=== PATIENT | female | born 1995 | race Caucasian/White ===

== ENCOUNTER 2024-07-08 21:01 | Emergency (ER) | payer OTHER, SELFPAY ==
[2024-07-08] VITALS (9 sets, daily range): BP systolic 98–119; BP diastolic 57–89; PULSE 82–101; RESP 15–23; TEMP 36.6–36.8; O2SAT 97–100; BMI 20.9
--- NOTE | 2024-07-08 22:17 | EKG12_ITS ---
Test Reason : DYSRHYTHMIA Blood Pressure : / mmHG Vent. Rate : 079 BPM Atrial Rate : 079 BPM P-R Int : 122 ms QRS Dur : 096 ms QT Int : 378 ms P-R-T Axes : 058 078 043 degrees QTc Int : 433 ms Normal sinus rhythm Normal ECG Confirmed by Rupesh Agustin ([id number]), communications editor WILEY ARIAS ([id number]) on 07/11/2024 11:22:56 AM Referred By: ANGELIA Confirmed By:Rupesh Agustin
[2024-07-08 22:33] LABS: Absolute Lymphocyte Count 2.56 X10^3/uL (0.83-4.51); Absolute Neutrophil Count 3.4 X10^3/uL (2.0-7.7); Basophil# 0.05 X10^3/uL; Basophil% 0.8 % (0-1); Eosinophil# 0.12 X10^3/uL; Eosinophils% 1.8 % (0-5); Hematocrit 36.4 % (37-47); Lymphocyte # 2.56 X10^3/ul (0.83-4.51); Lymphocyte % 38.6 % (19-41); Mean Corpuscular Hgb 30.3 pg (27.0-32.0); Mean Corpuscular Volume 91.9 fL (81-99); Mean Platelet Vol. 10.1 fl (6.2-12.0); Monocyte# 0.49 X10^3/uL; Monocyte% 7.4 % (0-10); NRBC Flagged by Analyzer 0 % (0-5); Neutrophil # 3.39 X10^3/uL (2.7-7.7); Neutrophil % 50.9 % (47-70); Platelet Count 191 K/mm3 (150-450); RBC Distribution Width CV 11.9 % (11.6-14.6); RBC Distribution Width SD 40.4 fl (35.1-43.9); Red Blood Count 3.96 M/mm3 (4.2-5.4); White Blood Count 6.6 K/mm3 (4.4-11.0)
--- NOTE | 2024-07-08 22:34 | RAD_ITS ---
EXAM: XR CHEST, 2 VIEWS CLINICAL INDICATION: sob TECHNIQUE: Frontal and lateral views of the chest. COMPARISON: No relevant prior studies available. FINDINGS: LUNGS AND PLEURAL SPACES: Unremarkable. No consolidation or edema. No pneumothorax. No effusion. HEART: Unremarkable. Cardiac silhouette not enlarged. MEDIASTINUM: Central airways and mediastinal contour are unremarkable. BONES/JOINTS: Unremarkable. No acute fracture. SOFT TISSUES: Unremarkable. RAD/Chest PA and Lateral IMPRESSION: No radiographic evidence of acute cardiopulmonary disease. Electronically Signed: Oleg Velazquez MD at 23:06 EDT ,
[2024-07-08 22:49] LABS: Anion Gap 5 (5-15); BUN 13 mg/dL (7-18); BUN/Creat Ratio 21.7 RATIO (10-20); Calcium,Total 8.7 mg/dL (8.5-10.1); Chloride 108 mmol/L (98-107); EST Glomerular Filtration Rate 128 mL/min (>60); Est Glom Filt Rate - Afr Amer 155 mL/min (>60); Estimated Creatinine Clearance 121.62 ml/min; Glucose 133 mg/dL (74-106); Potassium 3.2 mmol/L (3.5-5.1); Sodium Level 141 mmol/L (136-145); Troponin-I HS < 3 pg/mL (3.0-54.0)
[2024-07-08 22:51] LABS: BNP,B-Type NATRIURETIC PEPTIDE 15.8 pg/mL (0-100)
[2024-07-08 22:55] LABS: D-Dimer Quantitative (DVT/PE) < 0.27 FEU/ug/m (0.27-0.49)
--- NOTE | 2024-07-08 23:09 | ED.VIS.DYS ---
HPI History of Present Illness Chief Complaint: Shortness of Breath Informant: patient and spouse/S.O. Narrative Narrative: 29-year-old female has had dyspnea on exertion for the last 2 or 3 months or more, seems like it is progressively worsening. She gets dyspneic with chest tightness with activities, now it does not take very much exertion or activity for her to be symptomatic. She has had no presyncope or syncope. No fevers, chills, cough, orthopnea, leg swelling. No diaphoresis, no GI symptoms no other symptoms. Since she presents to the ER for this and has been several months, I asked them if they have had other healthcare encounters and testing for this, they state yes there was a CT scan with contrast done at [place], there apparently was a nodule, but they are not sure what else is known about it. They did see that her doctor and was referred to pulmonary but not able to get in. [facility] Medical History no medical history no medical history Home Medications ?Medication ?Instructions ?Recorded ?Last Taken ?Type prednisone 20 mg tablet 40 mg (2 x 20 mg) PO DAILY #10 07/08/24 Unknown Rx TABLETS Allergy/AdvReac Type Severity Reaction Status Date / Time No Known Allergies Allergy Verified 07/08/24 21:06 Surgical History no surgical history Social History Smoking Status: Never smoker ROS ROS ED Constitutional Constitutional ED: Denies chills or fever(s) Eyes Eyes: Denies change in vision or diplopia ENT ENT ED: Denies rhinorrhea or sore throat Cardiovascular Cardiovascular: Denies chest pain or palpitations Respiratory/Chest Respiratory/Chest: Reports chest tightness and dyspnea on exertion; Denies cough Gastrointestinal Gastrointestinal: Denies abdominal pain, diarrhea, nausea or vomiting Genitourinary Genitourinary ED: Denies dysuria or hematuria Musculoskeletal Musculoskeletal: Denies back pain or neck pain Integumentary Denies abscess or rash Neurologic Neurologic: Denies headache(s), paresthesias or weakness Psychiatric Psychiatric: Denies anxiety or suicidal thoughts EXAM Physical Exam Const Vital Signs: 07/08/24 21:04 07/08/24 21:16 07/08/24 22:06 Temperature 98 F Temperature Source Temporal Pulse Rate 98 86 Respiratory Rate 16 17 Respiratory Effort Normal Non-Labored Respiratory Depth Normal Respiratory Pattern Normal Blood Pressure 119/79 98/57 L Blood Pressure Mean 92 70 Pulse Ox 99 97 Oxygen Delivery Method Room Air Room Air Room Air 07/08/24 22:11 07/08/24 22:15 07/08/24 22:27 Temperature Temperature Source Pulse Rate 82 Respiratory Rate 17 Respiratory Effort Respiratory Depth Respiratory Pattern Blood Pressure 98/57 L 101/57 L Blood Pressure Mean 70 70 Pulse Ox Oxygen Delivery Method Room Air 07/08/24 22:30 07/08/24 22:30 07/08/24 22:45 Temperature Temperature Source Pulse Rate 92 Respiratory Rate 15 Respiratory Effort Respiratory Depth Respiratory Pattern Blood Pressure 99/66 99/66 112/89 H Blood Pressure Mean 77 77 97 Pulse Ox 100 Oxygen Delivery Method 07/08/24 23:00 07/08/24 23:15 07/08/24 23:15 Temperature 98.2 F Temperature Source Pulse Rate 93 98 98 Respiratory Rate 23 H 18 18 Respiratory Effort Respiratory Depth Respiratory Pattern Blood Pressure 104/66 104/66 Blood Pressure Mean 78 77 Pulse Ox 99 99 Oxygen Delivery Method Room Air 07/08/24 23:30 Temperature Temperature Source Pulse Rate 101 H Respiratory Rate 17 Respiratory Effort Respiratory Depth Respiratory Pattern Blood Pressure Blood Pressure Mean Pulse Ox Oxygen Delivery Method Positive well nourished and well developed General Appearance ED: well developed and NAD HEENT Reports moist mucous membranes normocephalic and atraumatic Eyes PERRL and EOMs intact bilaterally Neck full ROM and supple Resp normal respiratory effort and clear to auscultation bilaterally Cardio regular rate, regular rhythm and no murmurs GI non-tender and non-distended Auscultation: normoactive bowel sounds Palpation: soft Back/Spine no CVA tenderness General Back: other FROM Extremity normal to inspection General Extremety ED: Negative for edema, pulses abnormal or tenderness General Extremity: Negative for edema or pulses abnormal Neuro oriented x3, CN's II-XII intact bilaterally and no sensory deficits noted Sensorium / Orientation: awake and alert Motor Exam: strength 5/5 throughout Skin no rashes or lesions noted and no wounds MDM MDM MDM Narrative Medical decision making narrative: Young healthy female with exertional dyspnea and chest tightness; differential includes pneumonia, pneumothorax, pulmonary embolus, cardiac etiologies such as IHSS, cardiomyopathy, less likely acute coronary syndrome, anemia also in the differential. Initially, I looked in [facility] to see if I could review testing that she had from outside facility so that I do not repeat an unnecessary CT scan. She is not available in [facility], and there were no records. Therefore I did a two-view chest x-ray which on my interpretation is completely normal, as well as labs including a D-dimer, troponin, and BNP. All of this was normal. This rules out pulmonary embolus, acute coronary syndrome, acute decompensated congestive heart failure. She has normal vital signs while resting here. Her pulse oximetry is 99% on room air. I asked about reactive airway disease/asthma. They were prescribed an albuterol inhaler that they tried for this but they state that it did not help. I am going to prescribe her prednisone and have her follow-up with pulmonary. I gave her the information for both clinics in the local area so they could try to make an appointment with someone to be seen in follow-up. Other pathology that is unusual such as pulmonary sarcoidosis may be in the differential, I reassured them about the nodule, although I do not know the details of it, my guess is that it is not spiculated, and follow-up imaging in the future was probably recommended but I do not have the recommendations or the imaging result to tell them for sure. They need to follow-up with her doctor regarding this. Lab Data Attestation: I reviewed the patient's lab results. Labs: Laboratory Results - last 24 hr 07/08/24 07/08/24 22:22 22:25 WBC 6.6 RBC 3.96 L Hgb 12.0 Hct 36.4 L MCV 91.9 MCH 30.3 MCHC 33.0 RDW Std Deviation 40.4 RDW Coeff of [place] 11.9 Plt Count 191 MPV 10.1 Immature Gran % (Auto) 0.500 Neut % (Auto) 50.9 Lymph % (Auto) 38.6 Clare % (Auto) 7.4 Eos % (Auto) 1.8 Baso % (Auto) 0.8 Absolute Neuts (auto) 3.4 Absolute Lymphs (auto) 2.56 Nucleated RBC % 0 D-Dimer Quant (PE/DVT) < 0.27 L Sodium 141 Potassium 3.2 L Chloride 108 H Carbon Dioxide 28.0 Anion Gap 5 BUN 13 Creatinine 0.60 Estim Creat Clear Calc 121.62 Est GFR (MDRD) Af Amer 155 Est GFR (MDRD) Non-Af 128 BUN/Creatinine Ratio 21.7 H Glucose 133 H Calcium 8.7 Troponin I High Sens < 3 L B-Natriuretic Peptide 15.8 Radiography Diagnostic Testing: Clinical Impression(s) from Imaging Studies Chest X-Ray 07/08/24 22:34 IMPRESSION: No radiographic evidence of acute cardiopulmonary disease. Electronically Signed: Oleg Velazquez MD at 23:06 EDT Reading Location ID and State: [facility] / ID Tel , Service support , Rhythm Strip Rhythm Strip: Sinus Rhythm Rate: 85 Ectopy: None EKG Initial EKG: Attestation: I personally reviewed and interpreted this EKG as follows: Interpretation: Sinus Rhythm and No Acute Injury Pattern Comments: Normal EKG Discharge Plan Triage Chief Complaint: Shortness of Breath ED Provider: Nelson Wang Dx/Rx/DC Orders Clinical Impression: Dyspnea on exertion, Chest tightness Instructions: ED Dyspnea Prescriptions: New prednisone 20 mg tablet 40 mg PO DAILY Qty: 10 0RF Primary Care Provider: Wu Bryan Referrals: Tobin Huizar DO [Med Staff - Active Staff] - Bethany Huizar MD [Non-Staff] - Wu Bryan MD [Primary Care Provider] - Activity Restrictions/Additional Instructions: Both of the Dr[facility] Huizar clinics are separate pulmonary clinics; you may try to make an appointment at either one. Since you received your first dose of once daily steroid in the emergency department, start the prescription tomorrow 07/09 at dinnertime or later. Print Language: Icelandic Disposition Disposition: Home, Self Care
[2024-07-08] MEDS: MethylPREDNISolone 125 MG/2 ML Vial IV (23:37)
== END 2024-07-08 23:46 | disposition home or self-care (01) ==
PROVIDERS: Emergency Provider Emergency Medicine; PCP Family Medicine; Visit Provider Emergency Medicine
DX: R06.09 Other forms of dyspnea (principal); R07.89 Other chest pain
CPT/HCPCS: 71046; 80048; 83880; 84484; 85025; 85379; 93005; 96374; 99283; A4216